=== PATIENT | female | born 1990 | race Hispanic/Latino ===

== ENCOUNTER 2021-08-09 09:01 | Outpatient (CLI) | payer BC ==
[2021-08-09 20:04] LABS: SARS-CoV-2 PCR by NAA Not Detected (NotDetected)
== END 2021-08-09 09:02 | disposition home or self-care (01) ==
LOC: CSHLAB 09:01
PROVIDERS: ATTEND Obstetrics & Gynecology
DX: Z20.822 Contact with and (suspected) exposure to COVID-19 (principal)
CPT/HCPCS: U0003; U0005

== ENCOUNTER 2021-08-11 09:17 | Inpatient (IN) | payer BC ==
[2021-08-12 06:27] VITALS: BMI 30.6
[2021-08-12] MEDS ORDERED: Lidocaine 1% (PF) 30 ML VIAL SC PRN (06:32)
[2021-08-12] MEDS ORDERED: Methylergonovine 0.2 MG/ML VIAL IM PRN (06:32)
[2021-08-12] MEDS ORDERED: Diphenoxylate HCl/Atropine Tablet PO PRN ×2 (06:32)
[2021-08-12] MEDS ORDERED: Misoprostol 200 MCG TAB PR PRN (06:32)
[2021-08-12] MEDS ORDERED: NS w/ Oxytocin 30 units 500 ML IV SCH ×2 (06:32)
[2021-08-12] MEDS ORDERED: HYDROcodone/Acetaminophen 5/325 mg Tablet PO PRN (06:32)
[2021-08-12] MEDS ORDERED: Promethazine HCl 25 MG/ML VIAL IM PRN ×2 (06:32→11:07)
[2021-08-12] MEDS ORDERED: Ondansetron PF 4 MG/2 ML Vial IVP PRN ×2 (06:32→11:07)
[2021-08-12] MEDS ORDERED: hydrALAZINE 20 MG/ML VIAL SLOW IVP PRN ×2 (06:32→20:35)
[2021-08-12] MEDS ORDERED: Carboprost 250 MCG/ML AMP IM PRN (06:32)
[2021-08-12] MEDS ORDERED: Acetaminophen 500 MG TAB PO PRN (06:32)
[2021-08-12] MEDS ORDERED: Ibuprofen 800 MG TAB PO PRN (06:32)
[2021-08-12] MEDS ORDERED: Butorphanol Tartrate 1 MG/ML VIAL SLOW IVP PRN (06:32)
[2021-08-12 06:58] LABS: Mean Corpuscular HGB CONC 34.5 g/dL (32.0-36.0); Mean Corpuscular Hemoglobin 31.8 pg (27.0-33.0); Mean Corpuscular Volume 92.3 fl (81.6-98.3); Mean Platelet Volume 10.3 fl (7.4-10.4); Platelet Count 298 10x3/uL (150-450); RBC Distribution Width 13.3 % (11.5-14.5); Red Blood Cell (RBC) Count 3.77 10x6/uL (3.90-5.03); White Blood Cell (WBC) Count 15.2 10x3/uL (3.5-10.5)
[2021-08-12] MEDS: Lactated Ringer's 1,000 ML IV SCH (07:04)
[2021-08-12 07:36] LABS: Syphilis Antibody Nonreactive (Nonreactive); Syphilis Antibody Index 0.06 S/CO (<1.00 Non-Reactive)
[2021-08-12 07:37] LABS: Hep B Surf Ag Non-Reactive S/CO (NonReactive)
[2021-08-12 07:41] LABS: HBSAg Index 0.16 S/CO (0-0.99)
[2021-08-12] MEDS ORDERED: Bupivacaine 0.25% HCL 30 ML VIAL ONE (08:00)
[2021-08-12] MEDS ORDERED: Fentanyl 2 mcg/Bup 0.1% Cadd 100 ML ONE (10:59)
[2021-08-12] MEDS ORDERED: Naloxone HCl 0.4 mg/ml Vial IVP PRN ×2 (11:07)
[2021-08-12] MEDS ORDERED: ePHEDrine Sulfate 50 MG/10 ML VIAL SLOW IVP PRN (11:07)
[2021-08-12] MEDS ORDERED: diphenhydrAMINE 50 MG/ML VIAL IVP PRN (11:07)
[2021-08-12] MEDS ORDERED: Moisturizing Cream (Eucerin) 113 GM JAR TOP PRN (11:07)
[2021-08-12] MEDS ORDERED: Acetaminophen 325 MG TAB PO PRN (11:07)
[2021-08-12] MEDS ORDERED: Lactated Ringer's 500 ML IV PRN (11:09)
[2021-08-12] MEDS ORDERED: Fentanyl 2 mcg/Bupivacaine 0.1% Cassette 100 ML EPIDURAL SCH (11:15)
[2021-08-12] MEDS ORDERED: Communication Order-Pharmacy FS SCH (11:15)
[2021-08-12] MEDS ORDERED: Acetaminophen 500 MG TAB PO SCH (18:00)
[2021-08-12] MEDS ORDERED: Carboprost 250 MCG/ML AMP ONE (18:12)
[2021-08-12] MEDS ORDERED: Misoprostol 200 MCG TAB ONE (18:12)
[2021-08-12 18:46] LABS: Hemoglobin 10.9 g/dL (12.0-15.5); Mean Corpuscular HGB CONC 35.3 g/dL (32.0-36.0); Mean Corpuscular Hemoglobin 31.6 pg (27.0-33.0); Mean Corpuscular Volume 89.6 fl (81.6-98.3); Mean Platelet Volume 10.1 fl (7.4-10.4); Platelet Count 247 10x3/uL (150-450); RBC Distribution Width 13.5 % (11.5-14.5); Red Blood Cell (RBC) Count 3.45 10x6/uL (3.90-5.03)
[2021-08-12] MEDS ORDERED: Benzocaine-Menthol 82.5 ML CAN TOP PRN (20:35)
[2021-08-12] MEDS ORDERED: Bisacodyl 10 MG SUPP PR PRN (20:35)
[2021-08-12] MEDS ORDERED: Milk Of Magnesia 30 ML UDCUP PO PRN (20:35)
[2021-08-12] MEDS ORDERED: Lanolin Ointment 7 GM TUBE TOP PRN (20:35)
[2021-08-12] MEDS ORDERED: Boostrix 0.5 ML (Tdap) VIAL IM ONE (20:35)
[2021-08-12] MEDS ORDERED: Preparation H Ointment 28 GM TUBE PR PRN (20:35)
[2021-08-12] MEDS: Ferrous Sulfate 325 MG TAB PO SCH (22:09)
[2021-08-12] MEDS: Docusate 100 MG CAP PO SCH (22:19)
[2021-08-13] MEDS: traMADol HCl 50 MG TAB PO PRN ×3 (00:23→17:01)
[2021-08-13] MEDS: Acetaminophen 325 MG TAB PO PRN ×3 (06:17→21:43)
[2021-08-13] MEDS: Lactated Ringer's 1,000 ML IV SCH (06:49)
[2021-08-13] MEDS: Ferrous Sulfate 325 MG TAB PO SCH ×2 (08:59→15:51)
[2021-08-13] MEDS: Prenatal Vitamin 1 TAB PO SCH (08:59)
[2021-08-13] MEDS: Docusate 100 MG CAP PO SCH ×2 (08:59→21:43)
[2021-08-14] MEDS: traMADol HCl 50 MG TAB PO PRN ×2 (06:14→12:33)
[2021-08-14] MEDS: Prenatal Vitamin 1 TAB PO SCH (08:09)
[2021-08-14] MEDS: Docusate 100 MG CAP PO SCH (08:09)
[2021-08-14] MEDS: Ferrous Sulfate 325 MG TAB PO SCH ×2 (08:12→17:03)
[2021-08-14 08:15] VITALS: BP 127/73; TEMP 98.1
[2021-08-14] MEDS: Acetaminophen 325 MG TAB PO PRN (17:01)
== END 2021-08-14 17:35 | disposition home or self-care (01) | DRG 806 ==
LOC: CSHLD 08-12 06:08 → CSHPP 08-12 20:30
PROVIDERS: ADMIT Obstetrics & Gynecology; ATTEND Obstetrics & Gynecology
PROC: 10E0XZZ Delivery of Products of Conception, External Approach (ICD-10-PCS; principal; 2021-08-12)
PROC: 0UQG7ZZ Repair Vagina, Via Natural or Artificial Opening (ICD-10-PCS; 2021-08-12)
DX: O71.4 Obstetric high vaginal laceration alone (principal); O72.2 Delayed and secondary postpartum hemorrhage; Z37.0 Single live birth; Z3A.40 40 weeks gestation of pregnancy
CPT/HCPCS: 36415; 85027; 86780; 86850; 86900; 86901; 87340; J2405; J2590; J3490; J7120; S0020